=== PATIENT | female | born 2000 | race Caucasian/White ===

== ENCOUNTER → 2018-04-12 | Outpatient (CLI) | payer OTHER ==
[2018-04-12 16:09] LABS: PLATELET COUNT, AUTOMATED 329 K/uL (150-450)
== END ==
LOC: LAB 15:49
PROVIDERS: ATTEND Obstetrics & Gynecology
DX: Z00.00 Encounter for general adult medical examination without abnormal findings (principal)
CPT/HCPCS: 36415; 82040; 82247; 82306; 82310; 82374; 82435; 82565; 82728; 82947; 83540; 83550; 84075; 84132; 84155; 84295; 84439; 84443; 84450; 84460; 84520; 85007; 85027; 85651; 86140; 86706

== ENCOUNTER → 2018-06-12 | Outpatient (CLI) | payer OTHER ==
--- NOTE | 2018-06-13 15:48 | RADIOLOGY IMAGING REPORT ---
FACILITY: [facility] PATIENT NAME: CLARY KNAPP : [id number] MR: [id number] V: [id number] EXAM DATE: ORDERING PHYSICIAN: PAUL VAZQUEZ TECHNOLOGIST: Malcom Rivera RDMS, ANGIE PROCEDURE:US RIGHT BREAST COMPARISON:None. INDICATIONS:Palpable lump in the upper outer quadrant of the Right breast. FINDINGS: In the 10:30 position of the Right breast 8cm from the nipple there is a well circumscribed ovoid hypoechoic nodule with faint acoustic enhancement measuring 2 x 2.5 x 1cm. In the 12:30 position of the Right breast 8cm from the nipple there is a well circumscribed ovoid hypoechoic nodule measuring 8.6 x 8.9 x 4.7mm. There is faint acoustic enhancement. In the 1 o'clock position of the Right breast 1cm from the nipple there is a circumscribed polylobular hypoechoic mass measuring 1.3 x 1.4 x 0.6cm with no acoustic shadowing. In the 7 o'clock position of the Right breast 5cm from the nipple there is a circumscribed polylobular hypoechoic mass with faint acoustic enhancement measuring 1.1 x 0.4 x 1.7cm. In the 10 o'clock position of the Right breast there is a well circumscribed ovoid hypoechoic nodule measuring 6.8 x 3 x 4mm. In the Right axilla there are several fatty replaced lymph nodes with normal morphology. DIAGNOSTIC CATEGORY 3--PROBABLY BENIGN FINDING. RECOMMENDATIONS: SIX MONTH FOLLOW-UP ULTRASOUND: RIGHT BREAST. IMPRESSION: BIRADS 3: Probably benign finding. There are multiple circumscribed solid masses seen throughout the Right breast as described above. The largest is in the 10:30 position of the Right breast which likely accounts for the patient's palpable findings. A 6 month follow-up Right breast Ultrasound is recommended unless clinical findings warrant more immediate attention. Dictated by: Quin Floyd M.D. on 06/12/2018 at 16:54 Transcribed by: GEORGE on 06/13/2018 at 15:25 Approved by: Quin Floyd M.D. on 06/13/2018 at 15:47 [facility]
== END ==
LOC: MAMO 00:19
PROVIDERS: ATTEND Obstetrics & Gynecology
DX: N63.22 Unspecified lump in the left breast, upper inner quadrant (principal); N63.21 Unspecified lump in the left breast, upper outer quadrant

== ENCOUNTER → 2018-07-31 | Outpatient (CLI) | payer OTHER | LOC: LAB 13:24 | PROVIDERS: ATTEND Obstetrics & Gynecology | DX: Z01.84 Encounter for antibody response examination (principal) | CPT/HCPCS: 36415; 86706; 87340 ==

== ENCOUNTER → 2018-09-18 | Outpatient (CLI) | payer OTHER | LOC: LAB 09:03 | PROVIDERS: ATTEND Obstetrics & Gynecology | DX: Z11.1 Encounter for screening for respiratory tuberculosis (principal) | CPT/HCPCS: 86580 ==

== ENCOUNTER → 2018-09-30 | Outpatient (CLI) | payer OTHER | LOC: LAB 09:12 | PROVIDERS: ATTEND Obstetrics & Gynecology | DX: Z11.1 Encounter for screening for respiratory tuberculosis (principal) | CPT/HCPCS: 86580 ==